=== PATIENT | male | born 1955 | race African-American/Black ===

== ENCOUNTER 2023-04-04 19:35 | Emergency (ER) | payer MEDICARE, MEDICAID ==
[~2023-04-04] VITALS: Ht 182.9 cm; Wt 82.8 kg
[2023-04-04 19:44] VITALS: BP 124/92; O2SAT 97
[2023-04-04] MEDS ORDERED: KETOROLAC 15MG/ML VIAL IM ONE (21:00)
[2023-04-04] MEDS ORDERED: AMOX1TAB16 MT (21:02)
[2023-04-04] MEDS ORDERED: NAPR500T7 MT (21:02)
[2023-04-04 21:10] VITALS: PULSE 77; RESP 16; TEMP 98.8
== END 2023-04-04 21:20 | disposition home or self-care (01) ==
LOC: ER 21:08
DX: K08.89 Other specified disorders of teeth and supporting structures (principal); I10 Essential (primary) hypertension
CPT/HCPCS: 99283; 96372; J1885

== ENCOUNTER 2023-06-15 04:07 | Emergency (ER) | payer MEDICARE, MEDICAID ==
[~2023-06-15] VITALS: Ht 182.9 cm; Wt 88.0 kg
[~2023-06-15 04:07] MED LIST: AMOX1TAB16 MT; NAPR500T7 MT
[2023-06-15 04:12] VITALS: BP 128/83; PULSE 73; RESP 14; TEMP 98.9; O2SAT 98
[2023-06-15] MEDS ORDERED: KETOROLAC 60MG/2ML VIAL IM ONE (05:15)
[2023-06-15] MEDS ORDERED: AMOXICILLIN/POTASSIUM CLAVULANATE 875/125MG TAB PO ONE (05:15)
[2023-06-15] MEDS ORDERED: AMOX1TAB16 MT (05:18)
[2023-06-15] MEDS ORDERED: IBUP-2029 MT (05:18)
[2023-06-15] MEDS ORDERED: HYDR-4001 MT (05:18)
[2023-06-15] MEDS ORDERED: AMOXICILLIN/POTASSIUM CLAVULANATE 875/125MG TAB PO NR (05:45)
== END 2023-06-15 05:43 | disposition home or self-care (01) ==
LOC: ER 04:07
DX: K04.7 Periapical abscess without sinus (principal); E11.9 Type 2 diabetes mellitus without complications; Z86.39 Personal history of other endocrine, nutritional and metabolic disease
CPT/HCPCS: 99283; 96372; J1885